=== PATIENT | female | born 1985 | race Caucasian/White ===

== ENCOUNTER 2023-05-03 10:50 | Inpatient (IN) | payer BC ==
[2023-05-02 15:38] LABS: Hemoglobin 11.7 g/dL (12.0-15.5); Platelet Count 239 10x3/uL (150-450)
[2023-05-02 16:03] LABS: Syphilis Antibody Nonreactive (Nonreactive); Syphilis Antibody Index 0.11 S/CO (<1.00 Non-Reactive)
[2023-05-02 16:04] LABS: HBSAg Index 0.21 S/CO (0-0.99); Hep B Surf Ag Non-Reactive S/CO (NonReactive)
[~2023-05-03 10:50] MED LIST: Bicitra 30 ML UDCUP PO PRN; Famotidine/PF 20 mg/2ml Vial SLOW IVP PRN; Lactated Ringer's 1,000 ML IV SCH; Ondansetron PF 4 MG/2 ML Vial IVP PRN; Oxytocin 30 units/NS 500 ML 500 ML IV SCH; Promethazine HCl 25 MG/ML VIAL IM PRN; hydrALAZINE 20 MG/ML VIAL SLOW IVP PRN
[2023-05-03] MEDS ORDERED: Meperidine HCl/PF 25 MG/ML VIAL SLOW IVP PRN (10:51)
[2023-05-03] MEDS ORDERED: Naloxone HCl 0.4 mg/ml Vial IVP PRN ×2 (10:51)
[2023-05-03] MEDS ORDERED: Moisturizing Cream (Eucerin) 113 GM JAR TOP PRN (10:51)
[2023-05-03] MEDS ORDERED: Fentanyl 50 MCG/1 ML VIAL SLOW IVP PRN (10:51)
[2023-05-03] MEDS ORDERED: Naloxone HCl 0.4 mg/ml Vial IV PRN (10:51)
[2023-05-03] MEDS ORDERED: Ondansetron PF 4 MG/2 ML Vial IVP PRN ×2 (10:51→15:01)
[2023-05-03] MEDS ORDERED: Promethazine HCl 25 MG SUPP PR PRN (10:51)
[2023-05-03] MEDS ORDERED: diphenhydrAMINE 50 MG/ML VIAL IVP PRN (10:51)
[2023-05-03] MEDS ORDERED: Promethazine HCl 25 MG/ML VIAL IM PRN ×2 (10:51→15:01)
[2023-05-03] MEDS ORDERED: Ondansetron HCl/PF 4 MG/2 ML Vial IVP PRN (10:51)
[2023-05-03 10:53] VITALS: BMI 33.3
[2023-05-03] MEDS ORDERED: NO NARCS FOR 12 HRS FS PRN (11:00)
[2023-05-03] MEDS ORDERED: CEFAZOLIN 2 GM in Sodium Chloride 0.9% 100 ML IVPB SCH (11:15)
[2023-05-03] MEDS ORDERED: ePHEDrine Sulfate 50 MG/10 ML VIAL ONE (11:41)
[2023-05-03] MEDS ORDERED: Morphine PF 10 MG/10 ML VIAL ONE (11:41)
[2023-05-03] MEDS ORDERED: Erythromycin Base 0.5% Oint 1 GM TUBE ONE (12:51)
[2023-05-03] MEDS ORDERED: Phytonadione Neonatal 1 MG/0.5 ML AMP ONE (12:51)
[2023-05-03] MEDS ORDERED: Phenylephrine 40 MG/NS 250 ML 250 ML ONE (12:53)
[2023-05-03] MEDS ORDERED: Ondansetron PF 4 MG/2 ML Vial ONE (12:53)
[2023-05-03] MEDS ORDERED: Ketorolac Tromethamine 30 MG/ML VIAL ONE (12:53)
[2023-05-03] MEDS ORDERED: Oxytocin 10 UNITS/ML VIAL ONE (12:53)
[2023-05-03] MEDS ORDERED: Bisacodyl 10 MG SUPP PR PRN (15:01)
[2023-05-03] MEDS ORDERED: Boostrix 0.5 ML (Tdap) VIAL (>/=7 yrs of age) IM ONE (15:01)
[2023-05-03] MEDS ORDERED: hydrALAZINE 20 MG/ML VIAL SLOW IVP PRN (15:01)
[2023-05-03] MEDS ORDERED: Simethicone Chewable 80 MG TAB PO PRN (15:01)
[2023-05-03] MEDS ORDERED: Acetaminophen 325 MG TAB PO PRN (15:01)
[2023-05-03] MEDS ORDERED: Lanolin Ointment 7 GM TUBE TOP PRN (15:01)
[2023-05-03] MEDS ORDERED: Ibuprofen 800 MG TAB PO SCH ×2 (15:01→22:00)
[2023-05-03] MEDS ORDERED: diphenhydrAMINE 25 MG CAP PO PRN (15:01)
[2023-05-03] MEDS: Ketorolac Tromethamine 30 MG/ML VIAL IVP PRN (17:27)
[2023-05-03] MEDS ORDERED: Ketorolac Tromethamine 30 MG/ML VIAL IVP SCH (19:00)
[2023-05-03] MEDS ORDERED: Ketorolac Tromethamine 30 MG/ML VIAL IVP PRN (19:05)
[2023-05-03] MEDS ORDERED: HYDROcodone/Acetaminophen 5/325 mg Tablet PO PRN (23:00)
[2023-05-04 04:15] LABS: Hematocrit 30.4 % (34.9-44.5); Hemoglobin 9.7 g/dL (12.0-15.5); Mean Corpuscular HGB CONC 31.9 g/dL (32.0-36.0); Platelet Count 206 10x3/uL (150-450); RBC Distribution Width 15.5 % (11.5-14.5); Red Blood Cell (RBC) Count 3.34 10x6/uL (3.90-5.03); White Blood Cell (WBC) Count 12.5 10x3/uL (3.5-10.5)
[2023-05-04] MEDS: Ketorolac Tromethamine 30 MG/ML VIAL IVP PRN (06:19)
[2023-05-04] MEDS: Ferrous Sulfate 325 MG TAB PO SCH ×3 (07:50→21:03)
[2023-05-04] MEDS: Docusate 100 MG CAP PO SCH ×3 (07:50→21:04)
[2023-05-04] MEDS: Prenatal Vitamin 1 TAB PO SCH (09:08)
[2023-05-04] MEDS: HYDROcodone/Acetaminophen 5/325 mg Tablet PO PRN ×2 (15:01→21:04)
[2023-05-04] MEDS: Ibuprofen 800 MG TAB PO SCH (21:04)
[2023-05-05] MEDS: Ibuprofen 800 MG TAB PO SCH (05:54)
[2023-05-05 07:57] VITALS: BP 116/69; TEMP 98.4
[2023-05-05] MEDS: Docusate 100 MG CAP PO SCH (08:38)
[2023-05-05] MEDS: Ferrous Sulfate 325 MG TAB PO SCH (08:38)
[2023-05-05] MEDS: HYDROcodone/Acetaminophen 5/325 mg Tablet PO PRN (08:38)
[2023-05-05] MEDS: Prenatal Vitamin 1 TAB PO SCH (08:38)
== END 2023-05-05 12:45 | disposition home or self-care (01) | DRG 788 ==
LOC: CSHLD 10:50 → CSHPP 15:07
PROVIDERS: ADMIT Student in an Organized Health Care Education/Training Program; ATTEND Student in an Organized Health Care Education/Training Program
PROC: 10D00Z1 Extraction of Products of Conception, Low, Open Approach (ICD-10-PCS; principal; 2023-05-03)
PROC: 3E033VJ Introduction of Other Hormone into Peripheral Vein, Percutaneous Approach (ICD-10-PCS; 2023-05-03)
DX: O34.211 Maternal care for low transverse scar from previous cesarean delivery (principal); Z3A.39 39 weeks gestation of pregnancy; Z37.0 Single live birth
CPT/HCPCS: 51702; 85014; 85018; 85027; 85049; 86780; 86850; 86900; 86901; 87340; J1885; J2274; J2405; J2590; J3490